=== PATIENT | female | born 1970 | race Caucasian/White ===

== ENCOUNTER 2017-03-24 10:12 | Emergency (ER) | payer OTHER ==
[~2017-03-24] VITALS: Ht 157.4 cm; Wt 65.8 kg
[~2017-03-24 10:12] MED LIST: DAYPRO600 M1 PO; SKELAXIN800 MG PO
[2017-03-24] MEDS ORDERED: PATANOL 5 ML5 M1 OPH ×2 (11:15→11:16)
== END 2017-03-24 11:37 | disposition home or self-care (01) ==
LOC: ED 10:12
DX: H10.13 Acute atopic conjunctivitis, bilateral (principal); F17.200 Nicotine dependence, unspecified, uncomplicated; Z88.0 Allergy status to penicillin; Z88.1 Allergy status to other antibiotic agents; Z88.6 Allergy status to analgesic agent; Z88.8 Allergy status to other drugs, medicaments and biological substances; Z91.040 Latex allergy status; Z91.013 Allergy to seafood

== ENCOUNTER 2018-04-25 15:06 | Emergency (ER) | payer OTHER ==
[~2018-04-25] VITALS: Wt 74.8 kg
[~2018-04-25 15:06] MED LIST changes: +PATANOL 5 ML5 M1 OPH
[2018-04-25 15:37] LABS: BILIRUBIN NEGATIVE (NEGATIVE); BLOOD 3+ (NEGATIVE); CLARITY SL CLOUDY (CLEAR); COLOR YELLOW (YELLOW); GLUCOSE NEGATIVE (NEGATIVE); KETONE TRACE (NEGATIVE); LEUKO ESTERASE 2+ (NEGATIVE); NITRITE POSITIVE (NEGATIVE); SPECIFIC GRAVITY >= 1.030 (1.005-1.030); UROBILINOGEN 0.2 E.U./dl (0.2-1.0)
[2018-04-25 15:45] LABS: BACTERIA 3+; RBC 51-100 rbc/hpf (0-2)
[2018-04-25 15:46] LABS: WBC 21-30 wbc/hpf (0-5)
[2018-04-25] MEDS ORDERED: PYRIDIUM100 MG PO (16:56)
[2018-04-25] MEDS ORDERED: CIPRO500 MG PO (16:56)
== END 2018-04-25 17:32 ==
LOC: ED 15:06
PROVIDERS: Physician Assistant
DX: S30.0XXA Contusion of lower back and pelvis, initial encounter (principal); N39.0 Urinary tract infection, site not specified; M25.552 Pain in left hip; Z88.0 Allergy status to penicillin; Z88.1 Allergy status to other antibiotic agents; Z88.6 Allergy status to analgesic agent; Z90.710 Acquired absence of both cervix and uterus; W01.0XXA Fall on same level from slipping, tripping and stumbling without subsequent striking against object, initial encounter; Y93.89 Activity, other specified; Y92.89 Other specified places as the place of occurrence of the external cause; Y99.8 Other external cause status